=== PATIENT | male | born 1955 | race Caucasian/White ===

== ENCOUNTER → 2021-06-12 13:54 | Outpatient (BNVA) | payer BC, SELFPAY | PROVIDERS: PCP Internal Medicine; Referring Provider Internal Medicine; Visit Provider Surgery ==

== ENCOUNTER 2021-08-13 06:19 | Day surgery (SDC) | payer BC, SELFPAY ==
[2021-08-08 09:34] VITALS: BMI 28.6
--- NOTE | 2021-08-12 08:28 | HO.ANESPROP2 ---
Documented by User: Elzbieta Crooks NP 08/12/21 08:32 HPI - Anesthesia Eval Consult details Narrative: 66yo M for Colonoscopy, Poss Polypectomy [facility] Active Problems Active Problems: All Active Problems (Updated 06/12/21 @ 14:22 by Martín Gage MD) History of adenomatous polyp of colon (Acute) Hypothyroidism (Acute) Past Medical History Medical History History of adenomatous polyp of colon Hypothyroidism Surgical History Surgical History H/O colonoscopy History of left inguinal hernia repair History of thyroidectomy (~2011) Hx of skin graft Social History Social History Alcohol intake: current Alcohol intake frequency: does not drink Patient Tobacco Use Status: Former Tobacco user Tobacco use type: Cigarette Meds Allergies Allergy/AdvReac Type Severity Reaction Status Date / Time No Known Allergies Allergy Verified 06/12/21 14:14 [No Known Allergies*] Home Medications Medication Instructions Recorded Confirmed Last Taken Type levothyroxine 137 mcg tablet 137 mcg PO DAILY 06/12/21 08/13/21 08/13/21 05:15 History (Synthroid) Exam Exam Date and Time: August 12, 2021 0828 Height,Weight and Vital Signs: Height 6 ft 3 in Weight 103.929 kg Assessment and Plan Assessment Anesthesia Assessment: Chart Reviewed Documented by User: Farshad Early MD 08/13/21 14:55 HPI - Anesthesia Eval Consult details Narrative: 66yo M for Colonoscopy, Poss Polypectomy h/o thyroid carcinoma s/p surgery . DVT , 5 years ago was on anti coagulation . [facility] Past Medical History Medical History History of adenomatous polyp of colon Hypothyroidism Functional capacity: independent ambulation Family History Family history of problems with anesthesia: Yes (Comma / delayed emergence in daughter and ? MH . Patient does not know details ) Surgical History Surgical History H/O colonoscopy History of left inguinal hernia repair History of thyroidectomy (~2011) Hx of skin graft History of Problems with Anesthesia: No Social History Social History Alcohol intake: current Alcohol intake frequency: does not drink Patient Tobacco Use Status: Former Tobacco user Tobacco use type: Cigarette Meds Allergies Allergy/AdvReac Type Severity Reaction Status Date / Time No Known Allergies Allergy Verified 06/12/21 14:14 [No Known Allergies*] Home Medications Medication Instructions Recorded Confirmed Last Taken Type levothyroxine 137 mcg tablet 137 mcg PO DAILY 06/12/21 08/13/21 08/13/21 05:15 History (Synthroid) Exam Airway Mallampati Class: II TM Dist: >3cm Neck ROM: Full Loose/Missing/Broken Teeth: Yes Heart: rrr Lungs: bl breath sounds Assessment and Plan Assessment Anesthesia Assessment: Anesthesia Plan Discussed Final Anesthetic Review Family History of Problems with Anesthesia: Yes (Comma / delayed emergence in daughter and ? MH . Patient does not know details ) History of Problems with Anesthesia: No NPO: Yes ASA Class: III Final Preanesthetic Review: No Changes in Pt Med Stat, Meds/Allgs Chart Reviewed, Consent Obtained/Reviewed and Anes Risks/Benef Reviewed Patient Risk: Intermediate Procedure Risk: Intermediate Anesthetic Plan Anesthetic Plan: MAC: Disposition: Standard PACU
[2021-08-13 06:43] VITALS: BP 127/89; PULSE 77; RESP 16; TEMP 36.5; O2SAT 99
[2021-08-13] MEDS: Lactated Ringers 1,000 ML 100 ML IVCONT (06:47)
--- NOTE | 2021-08-13 07:25 | MHC.SHP ---
Pre-Procedural Eval Section A Date of Service: 08/13/21 Section B Chief Complaint: History of adenomatous polyp of colon Details of Present Illness: has hx of adenomatous polyps, last colonoscopy in 2017 Relevant Family History (Specify if Yes): No Relevant Social History: None Present Medications: see Short Stay Collaborative assessment Medical History: Significant History (thyroid ds) Allergies: Allergies Allergy/AdvReac Type Severity Reaction Status Date / Time No Known Allergies Allergy Verified 06/12/21 14:14 [No Known Allergies*] Review of Systems Sugical H&P ROS: Negative: Constitution, Cardiovascular, Respiratory, Neurological, Psychiatric, Hem-Onc, Allergic/Immunologic, Gastrointestinal, Genitourinary, Musculoskeletal, Integumentary, Endocrine and Eyes/Ears/Nose/Throat Exam Surgical H&P Exam: Normal: HEENT, Normal: Heart, Normal: Lungs, Normal: Extremities, Normal: Abdomen, Normal: Skin and Normal: Neurological Plan Diagnosis/Plan: Unchanged I have reviewed the history and physical and performed a pertinent physical examination on my patient. No changes have occurred unless specified.
--- NOTE | 2021-08-13 08:09 | W.PM.OPN ---
Operative Note Operative Note Date of Service: 08/13/21 Narrative: Preop diagnosis: History of tubular adenomas Postop diagnosis: 1. Diffuse diverticulosis throughout the colon, heavy in the sigmoid 2. Large external hemorrhoids Procedure: Colonoscopy Surgeon: Martín Gage MD Patient is a 66 year male who had multiple tubular adenomas in 2017. He was advised to have another colonoscopy within 1 year but he said he never had this done. He understood the technique of colonoscopy and was aware of the risks, benefits and alternatives He was brought to the operating room placed in left lateral decubitus position under monitored anesthesia care. A surgical time-out was done. I proceeded to do a digital rectal exam. The patient had large external hemorrhoids. There was no new anal mass. I inserted the Olympus colonoscope through the anal orifice advanced this gently with insufflation all the way to the cecum. The cecum was intubated. The cecum was identified by visualization of the ileocecal valve as well as the appendiceal orifice. The cecal mucosa was unremarkable. The scope was gradually withdrawn with careful examination of the entire colonic mucosa being done with scope withdrawal. The patient had good bowel prep so it was unlikely that any lesion may have been missed . There was note of scattered diverticulosis throughout the entire colon. However, this was very heavy in the area of the sigmoid. There were no lesions seen. The rectum and the anal canal were unremarkable. Anal shelf did not have any lesions. There was note of which external hemorrhoids. The scope was then withdrawn completely with desufflation. The patient tolerated procedure well. There were no complications noted. He was transferred to recovery room with stable vital signs . In view of history of multiple tubular adenomas, I would recommend another colonoscopy in 5 years.
[2021-08-13 08:16] VITALS: BP 106/62; PULSE 59; RESP 19; TEMP 36.6; O2SAT 97
[2021-08-13 08:31] VITALS: BP 116/79; PULSE 55; RESP 18; TEMP 36.6; O2SAT 98
== END 2021-08-13 08:56 | disposition home or self-care (01) ==
PROVIDERS: PCP Internal Medicine; Visit Provider Surgery
PROC: 0DJD8ZZ Inspection of Lower Intestinal Tract, Via Natural or Artificial Opening Endoscopic (ICD-10-PCS; CPT 45378; principal; 2021-08-13 07:30)
DX: Z12.11 Encounter for screening for malignant neoplasm of colon (principal); Z86.010 Personal history of colon polyps; K57.30 Diverticulosis of large intestine without perforation or abscess without bleeding; K64.4 Residual hemorrhoidal skin tags; E89.0 Postprocedural hypothyroidism; Z98.890 Other specified postprocedural states; Z87.891 Personal history of nicotine dependence
CPT/HCPCS: 45378

== ENCOUNTER → 2021-09-02 10:25 | Outpatient (BNVA) | payer BC, SELFPAY | PROVIDERS: PCP Internal Medicine; Referring Provider Internal Medicine; Visit Provider Surgery | DX: Z13.89 Encounter for screening for other disorder (principal) ==

== ENCOUNTER 2022-01-21 10:53 | Outpatient (REF) | payer BC, SELFPAY ==
[2022-01-21 14:23] LABS: Thyroid Stimulating Hormone 0.27 uIU/mL (0.32-4.0)
[2022-01-24 05:27] LABS: Thyroglobulin <0.1 ng/mL
== END 2022-01-21 10:54 | disposition home or self-care (01) ==
LOC: HO.10HDL 10:53
PROVIDERS: Visit Provider Internal Medicine Endocrinology, Diabetes & Metabolism
DX: C73 Malignant neoplasm of thyroid gland (principal)
CPT/HCPCS: 36415; 84432; 84439; 84443

== ENCOUNTER 2022-03-17 11:49 | Emergency (ER) | payer BC, SELFPAY ==
--- NOTE | 2022-03-17 11:52 | ECG_ITS ---
Test Reason : chest pain Blood Pressure : / mmHG Vent. Rate : 063 BPM Atrial Rate : 063 BPM P-R Int : 124 ms QRS Dur : 092 ms QT Int : 398 ms P-R-T Axes : 046 011 024 degrees QTc Int : 407 ms Normal sinus rhythm Low voltage QRS Borderline ECG When compared with ECG of 15-MAR-2003 15:37, No significant change was found Referred By: Generic ED Physician Electronically Signed By:RADHA HUMMEL MD
[2022-03-17 12:00] VITALS: BP 137/80; PULSE 70; RESP 18; TEMP 36.1; O2SAT 95; BMI 27.1
--- NOTE | 2022-03-17 12:00 | ED_ITS ---
HPI - Chest Pain General Chief Complaint: Chest Pain Stated Complaint: CHest & Arm Pain Sent from Drs Office Time Seen by Provider: 03/17/22 12:00 Source: patient Mode of arrival: ambulatory Limitations: no limitations History of Present Illness HPI narrative: patient with chest pressure since this morning. He went to his primary care and the sent him here. 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) Pain location: left chest Pain radiation: left arm Severity: mild Quality: aching Relieving factors: nothing Exacerbating factors: nothing Associated symptoms: other (dizziness) Risk Factors Coronary artery disease risk factors: smoking history Related Data Previous Rx's Medication Instructions Recorded levothyroxine 137 mcg tablet 137 mcg PO DAILY #30 tabs 11/12/21 (Synthroid) Allergies Allergy/AdvReac Type Severity Reaction Status Date / Time No Known Allergies Allergy Verified 03/17/22 10:43 [No Known Allergies*] Review of Systems Constitutional: Constitutional: Reports no additional constitutional complaints Eyes: Eyes: Reports no additional eye complaints ENT: Denies dizziness Cardiovascular: Cardiovascular: Reports no additional cardiovascular complaints Respiratory: Respiratory: Reports as per HPI Gastrointestinal: Gastrointestinal: Reports no additional gastrointestinal complaints Musculoskeletal: Musculoskeletal: Reports no additional musculoskeletal complaints Integumentary/Breasts: Skin/Breast: Denies rash Neurologic: Reports system reviewed and no additional complaints, except as documented, Denies dizziness and Denies Sensory deficit (Neuro) Psychiatric: Psychiatric: Denies anxiety PMFSH Past Medical History Medical History Diverticulosis History of adenomatous polyp of colon Hypothyroidism Thyroid cancer Surgical History H/O colonoscopy History of colonoscopy (~2021) History of left inguinal hernia repair History of thyroidectomy (~2011) Hx of skin graft Family History Family History Mother Heart problem Father Heart problem Social History Social History Alcohol intake: current Alcohol intake frequency: does not drink Patient Tobacco Use Status: Former Tobacco user Tobacco use type: Cigarette Physical Exam Vital Signs: Vital Signs: Last Vital Signs Temp 97.0 F 03/17/22 12:00 Pulse 70 03/17/22 12:00 Resp 18 03/17/22 12:00 BP 137/80 03/17/22 12:00 Pulse Ox 95 03/17/22 12:00 O2 Del Method 03/17/22 12:00 BMI result Body Mass Index 27.1 Const: General: healthy appearing Nutritional Appearance: average body habitus Orientation/consciousness: oriented to person and patient oriented x3 Limitations: no limitations HEENT: Head: Yes normal to inspection Ears: external ears normal General nose exam: Normal external nose present Mouth: Normal oral and palatal mucosa present and oropharynx normal Throat: Yes posterior oropharynx normal Eyes: General: appearance normal, both eyes and all related structures Neck: Other: supple Neck: Yes normal visual inspection Chest: Chest palpation & inspection: normal inspection of the chest Resp: Auscultation: clear to auscultation bilaterally Cardio: Jugular venous distension: no JVD Rate: regular rate Rhythm: regular rhythm Heart sounds: S1 normal heart sound present and S2 normal heart sound present GI: Inspection: Yes normal to inspection Palpation (GI): Soft to palpation, nontender and No hepatosplenomegaly present Auscultation: normal bowel sounds : General: Yes no CVA tenderness Back/Spine/Pelvis: Back: no CVA tenderness Skin: General skin exam: no rashes or lesions noted Neuro: General: oriented to person and patient oriented x3 Cranial nerves: Yes CN's II-XII intact bilaterally Motor exam (neuro): 5/5 motor strength present throughout Sensory Exam: No Sensory deficit (Neuro) Extrem: General: Yes normal to inspection Psych: Appearance: grossly normal Course Reevaluation(s) Reevaluation #1: patient with normal EKG and normal vitals, first troponin is negative will draw second troponin Time: 14:35 Reevaluation #2: serial enzymes were negative will dc home with close follow up by pmd Time: 15:43 Medications Administered Discontinued Medications Generic Name Dose Route Start Last Admin Trade Name Hal PRN Reason Stop Dose Admin Aspirin 325 mg 03/17/22 12:04 03/17/22 12:09 Aspirin Enteric Coated 325 Mg Tablet.Dr CHAVEZ 03/17/22 12:05 325 mg ONCE ONE Administration MDM - Chest Pain Lab Data Result diagrams: 03/17/22 12:02 03/17/22 12:02 Labs: Lab Results 03/17/22 03/17/22 03/17/22 Range/Units 12:02 12:02 12:02 WBC 5.1 (4.8-10.8) X10*3/uL RBC 4.29 L (4.60-5.80) X10*6/uL Hgb 13.1 L (14.0-18.0) g/dl Hct 39.5 L (42.0-52.0) % MCV 92.1 (80.0-98.0) fL MCH 30.5 (27.0-33.0) pg MCHC 33.2 (31.0-36.0) g/dl RDW 13.1 (11.0-16.0) % Plt Count 225 (160-400) X10*3/uL MPV 11.0 (9.4-12.4) fL Immature Gran % (Auto) 0.6 H (0.0-0.4) % Neut % (Auto) 56.3 (45-73) % Lymph % (Auto) 28.1 (20-40) % Metcalfe % (Auto) 12.2 H (2-11) % Eos % (Auto) 1.8 (0-4) % Baso % (Auto) 1.0 (0-2) % Lymph # (Auto) 1.4 (1.2-4.9) X10*3/uL Metcalfe # (Auto) 0.6 (0.1-1.2) X10*3/uL Eos # (Auto) 0.1 (0.0-0.4) X10*3/uL Baso # (Auto) 0.1 (0.0-0.2) X10*3/uL Abs Immat Gran (auto) 0.03 (0.00-0.03) X10*3/uL Absolute Neuts (auto) 2.9 (2.0-8.3) x10*3/uL Absolute Nucleated RBC 0.000 (0.0-0.012) X10*3/uL Nucleated RBC % (auto) 0.0 (0.0-0.2) /100WBC Sodium 139 (135-145) mmol/L Potassium 4.7 (3.3-5.1) mmol/L Chloride 108 (96-108) mmol/L Carbon Dioxide 21 L (22-29) mmol/L Anion Gap 15 (12-20) BUN 14 (9-16) mg/dL Creatinine 1.05 (0.5-1.4) mg/dL Estim Creat Clear Calc 84.9 Estimated GFR > 60 Random Glucose 97 (60-115) mg/dL Calcium 8.6 (8.4-10.2) mg/dL Total Bilirubin 0.5 (0.0-1.0) mg/dL AST 28 (5-37) U/L ALT 33 (0-40) U/L Alkaline Phosphatase 47 (39-117) U/L Troponin I High Sens < 3.5 (<3.5-35.0) ng/L Total Protein 7.0 (6.5-8.0) g/dL Albumin 4.2 (3.5-5.0) g/dL 03/17/22 Range/Units 15:07 WBC (4.8-10.8) X10*3/uL RBC (4.60-5.80) X10*6/uL Hgb (14.0-18.0) g/dl Hct (42.0-52.0) % MCV (80.0-98.0) fL MCH (27.0-33.0) pg MCHC (31.0-36.0) g/dl RDW (11.0-16.0) % Plt Count (160-400) X10*3/uL MPV (9.4-12.4) fL Immature Gran % (Auto) (0.0-0.4) % Neut % (Auto) (45-73) % Lymph % (Auto) (20-40) % Metcalfe % (Auto) (2-11) % Eos % (Auto) (0-4) % Baso % (Auto) (0-2) % Lymph # (Auto) (1.2-4.9) X10*3/uL Metcalfe # (Auto) (0.1-1.2) X10*3/uL Eos # (Auto) (0.0-0.4) X10*3/uL Baso # (Auto) (0.0-0.2) X10*3/uL Abs Immat Gran (auto) (0.00-0.03) X10*3/uL Absolute Neuts (auto) (2.0-8.3) x10*3/uL Absolute Nucleated RBC (0.0-0.012) X10*3/uL Nucleated RBC % (auto) (0.0-0.2) /100WBC Sodium (135-145) mmol/L Potassium (3.3-5.1) mmol/L Chloride (96-108) mmol/L Carbon Dioxide (22-29) mmol/L Anion Gap (12-20) BUN (9-16) mg/dL Creatinine (0.5-1.4) mg/dL Estim Creat Clear Calc Estimated GFR Random Glucose (60-115) mg/dL Calcium (8.4-10.2) mg/dL Total Bilirubin (0.0-1.0) mg/dL AST (5-37) U/L ALT (0-40) U/L Alkaline Phosphatase (39-117) U/L Troponin I High Sens < 3.5 (<3.5-35.0) ng/L Total Protein (6.5-8.0) g/dL Albumin (3.5-5.0) g/dL Discharge Plan Discharge Clinical Impression: Chest pain Patient Disposition: Home, Self-Care Instructions: Chest Pain (ED) Additional Instructions: return immediately for worsening chest pain otherwise follow up with your doctor for outpatient stress test Prescriptions: No Action levothyroxine [Synthroid] 137 mcg tablet 137 mcg PO DAILY Qty: 30 1RF Referrals: Erika Razo MD [Primary Care Provider] - 3 days
[2022-03-17] MEDS: Aspirin Enteric Coated 325 MG TABLET.DR PO (12:09)
[2022-03-17 12:20] LABS: MANUAL DIFF FLAG NO
[2022-03-17 12:21] LABS: Basophils Absolute Auto 0.1 X10*3/uL (0.0-0.2); Eosinophils Absolute Auto 0.1 X10*3/uL (0.0-0.4); Eosinophils Percent Auto 1.8 % (0-4); Hematocrit 39.5 % (42.0-52.0); Hemoglobin 13.1 g/dl (14.0-18.0); Imm Gran Abs Auto 0.03 X10*3/uL (0.00-0.03); Imm Gran Pct Auto 0.6 % (0.0-0.4); Lymphocytes Absolute Auto 1.4 X10*3/uL (1.2-4.9); Lymphocytes Percent Auto 28.1 % (20-40); Mean Corpuscular HGB Conc 33.2 g/dl (31.0-36.0); Mean Corpuscular Hemoglobin 30.5 pg (27.0-33.0); Mean Corpuscular Volume 92.1 fL (80.0-98.0); Monocytes Absolute Auto 0.6 X10*3/uL (0.1-1.2); Monocytes Percent Auto 12.2 % (2-11); Neutrophils Absolute Auto 2.9 x10*3/uL (2.0-8.3); Neutrophils Percent Auto 56.3 % (45-73); Platelet Count 225 X10*3/uL (160-400); Red Blood Count 4.29 X10*6/uL (4.60-5.80); Red Cell Distribution Width 13.1 % (11.0-16.0); White Blood Count 5.1 X10*3/uL (4.8-10.8)
[2022-03-17 12:36] LABS: Alanine Aminotransferase 33 U/L (0-40); Albumin Level 4.2 g/dL (3.5-5.0); Alkaline Phosphatase 47 U/L (39-117); Anion Gap 15 (12-20); Aspartate Amino Transferase 28 U/L (5-37); Bilirubin Total 0.5 mg/dL (0.0-1.0); Blood Urea Nitrogen 14 mg/dL (9-16); Calcium 8.6 mg/dL (8.4-10.2); Carbon Dioxide 21 mmol/L (22-29); Chloride 108 mmol/L (96-108); Creatinine Clr Calc Pharmacy 84.9; Estimated Glomerular Filt Rate > 60; Glucose Random 97 mg/dL (60-115); Potassium 4.7 mmol/L (3.3-5.1); Sodium 139 mmol/L (135-145)
[2022-03-17 12:42] LABS: Troponin-I High Sensitivity < 3.5 ng/L (<3.5-35.0)
[2022-03-17 15:34] LABS: Troponin-I High Sensitivity < 3.5 ng/L (<3.5-35.0)
--- OUTSIDE RECORDS SUMMARY | 2022-03-17 15:54 | XMS_ITS | Continuity of Care Document ---
:1955 Author Organization [facility] [place] Address [address] [place] [address]- Care Team Providers Name Role Phone Danni GOFF, Erika Crawford Primary Care Physician [place] [facility] [place]20 [facility] Endocrinology and Diabetes [address] [place] [id number] Allergies, Adverse Reactions, Alerts Substance Reaction Severity Status NKA Active Immunizations Given and Recorded Vaccine Date Status Refusal Reason SARS-CoV-2 (COVID-19) mRNA BNT-162b2 vac 08/09/20 Given SARS-CoV-2 (COVID-19) mRNA BNT-162b2 vac 07/19/20 Given Medications aspirin 81 mg oral tablet 1 tablet = 81 mg, By Mouth, Daily, 0 Refills, Maintenance, 06/09/18 15:21:49 EST Start Date: 06/09/18 Status: OrderedSynthroid 137 mcg (0.137 mg) oral tablet 1 tablet = 137 mcg, By Mouth, Daily, for 30 days, NO SUBSTITUTIONS; BRAND NAME MEDICALLY NECESSARY;,# 30 tablet, 2 Refills, Hard Stop 01/08/21 11:01:00 EDT, 10/10/20 11:01:00 EDT, Tablet, [id number], 190, cm, 11/17/18 16:38:00 EDT, Height Start Date: 10/10/20 Stop Date: 01/08/21 Status: OrderedSynthroid 137 mcg (0.137 mg) oral tablet 1 tablet = 137 mcg, By Mouth, Daily, NO SUBSTITUTIONS; BRAND NAME MEDICALLY NECESSARY;, # 90 tablet,3 Refills, Maintenance, 01/08/21 11:01:00 EDT, Tablet, [id number], 190, cm, 10/31/20 8:41:00EDT, Height Start Date: 01/08/21 Stop Date: 01/03/22 Status: Ordered Social History Social History Type Response Smoking Status Former smoker; Other: quit J anuary 2015; entered on: 09/27/15 Sex
--- OUTSIDE RECORDS SUMMARY | 2022-03-17 15:54 | XMS_ITS | Continuity of Care Document ---
:1955 Author Organization [facility] Address [address] [place] [address]- Care Team Providers Name Role Phone Danni GOFF, Erika Crawford Primary Care Physician Encounter [facility] [place] Date(s): 10/17/20 - 11/16/20 [facility] Endocrinology and Diabetes [address] [place] [id number] Allergies, Adverse Reactions, Alerts Substance [...]
--- OUTSIDE RECORDS SUMMARY | 2022-03-17 15:54 | XMS_ITS | Continuity of Care Document ---
:1955 Author Organization [facility] Address [address] [place] [address]- Care Team Providers Name Role Phone Danni GOFF, Erika Crawford Primary Care Physician [phone] Encounter [facility] [place]s): 09/07/19 - 10/07/19 [facility] Endocrinology and Diabetes [address] [place] [id number] [facility] Attending Physician: Admtr, Law8 Admitting Physician: Admtr, Ar8 Referring Physician: Admtr, Ar8 Allergies, Adverse Reactions, Alerts Substance Reaction Severity Status NKA Active Medications aspirin 81 mg oral tablet 1 tablet = 81 mg, By Mouth, Daily, 0 Refills, Maintenance, 06/09/18 15:21:49 EST Start Date: 06/09/18 Status: OrderedSynthroid 137 mcg (0.137 mg) oral tablet 1 tablet = 137 mcg, By Mouth, Daily, for 30 days, NO SUBSTITUTIONS; BRAND NAME MEDICALLY NECESSARY;,# 30 tablet, 2 Refills, Hard Stop 12/05/19 14:06:00 EDT, 09/06/19 14:06:00 EDT, Tablet, [id number], 190, cm, 11/17/18 16:38:00 EDT, Height Start Date: 09/06/19 Stop Date: 12/05/19 Status: OrderedSynthroid 137 mcg (0.137 mg) oral tablet 1 tablet = 137 mcg, By Mouth, Daily, NO SUBSTITUTIONS; BRAND NAME MEDICALLY NECESSARY;, # 30 tablet,9 Refills, Maintenance, 12/05/19 14:06:00 EDT, Tablet, [id number], 190, cm, 11/17/18 16:38:00 EDT, Height Start Date: 12/05/19 Stop Date: 09/30/20 Status: Ordered Social History Social History Type Response Smoking Status Former smoker; Other: quit J anuary 2015; entered on: 09/27/15 Sex
--- OUTSIDE RECORDS SUMMARY | 2022-03-17 15:54 | XMS_ITS | Continuity of Care Document ---
:1955 Author Organization [facility] Address [address] [place] [address]- Care Team Providers Name Role Phone Danni GOFF, Erika Crawford Primary Care Physician Encounter [facility] [place](s): 10/10/20 - 11/09/20 [facility] Endocrinology and Diabetes [address] [place] [id number] Allergies, Adverse Reactions, Alerts Substance Reaction Severity [...]
--- OUTSIDE RECORDS SUMMARY | 2022-03-17 15:54 | XMS_ITS | Continuity of Care Document ---
:1955 Author Organization [facility] Address [address] [place] [address]- Care Team Providers Name Role Phone Danni GOFF, Erika Crawford Primary Care Physician Encounter [facility] [place] Date(s): 10/31/20 - 11/30/20 [facility] Endocrinology and Diabetes [address] [place] [id number] Attending Physician: AdmAsher samson Admitting Physician: Admtr, Law8 Referring Physician: Admtr, Ar8 Allergies, Adverse Reactions, [...] 01/08/21 11:01:00 EDT, 10/10/20 11:01:00 EDT, Tablet, [id number], 190, cm, 11/17/18 16:38:00 EDT, Height Start [...]
--- OUTSIDE RECORDS SUMMARY | 2022-03-17 15:54 | XMS_ITS | Continuity of Care Document ---
:1955 Author Organization [facility] Address [address] [place] [address]- Care Team Providers Name Role Phone Danni GOFF, Erika Crawford Primary Care Physician [place] [facility] [place] 09[place]07/19 - 09/14/19 [facility] Endocrinology and Diabetes [address] [place] [address] [facility] Attending Physician: Giuliana GOFF, Brody Referring Physician: Erika Razo MD Allergies, Adverse Reactions, Alerts Substance Reaction Severity [...] EDT, Height Start Date: 12/05/19 Stop Date: 5/23/21 Status: Ordered Social History Social History Type Response Smoking Status Former smoker; Other: quit J anuary 2015; entered on: 09/27/15 Sex
--- OUTSIDE RECORDS SUMMARY | 2022-03-17 15:54 | XMS_ITS | Continuity of Care Document ---
:1955 Author Organization [facility] Address [address] [place] [address]- Care Team Providers Name Role Phone Danni GOFF, Erika Crawford Primary Care Physician [place] [facility] [place]s): 10/31/20 - 11/30/20 [facility] Endocrinology and Diabetes [address] [place] [id number] Allergies, Adverse Reactions, Alerts Substance Reaction [...]
== END 2022-03-17 16:06 | disposition home or self-care (01) ==
LOC: HO.ED 15:53
PROVIDERS: Emergency Provider Emergency Medicine; PCP Internal Medicine
DX: R07.9 Chest pain, unspecified (principal); Z87.891 Personal history of nicotine dependence
CPT/HCPCS: 36415; 80053; 84484; 85025; 93005; 99283; 99284

== ENCOUNTER 2023-01-21 11:04 | Outpatient (AMB) | payer BC, SELFPAY ==
[2023-01-21 11:06] VITALS: BP 98/66; PULSE 67; BMI 27.3
--- NOTE | 2023-01-21 11:06 | A.OFFVIS_ITS ---
Intake Vital Signs 01/21/23 11:06 Height 6 ft 3 in Weight 218 lb 7.649 oz BMI 27.3 BP 98/66 Blood Pressure Location Lt brachial Position Sitting Pulse 67 Pulse Source Pulse Oximeter Intake Visit Reasons: f/u thyroid cancer/ LVM Intake Note: Patient present for Thyroid Cancer follow up visit. 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 In 2006, he underwent a total thyroidectomy with iodine-131 ablation 2006. He has subsequently had negative basal thyroglobulin is and negative neck ultrasounds. He is currently on levothyroxine 137 mcg q.d. he has no complaints of hypothyroidism or hyperthyroid [facility] Medical History Diverticulosis History of adenomatous polyp of colon Hypothyroidism Thyroid cancer Surgical History History of colonoscopy (~2021) H/O colonoscopy Hx of skin graft History of left inguinal hernia repair History of thyroidectomy (~2011) Family History Mother Heart problem Father Heart problem Social History Alcohol intake: current Alcohol intake frequency: does not drink Patient Tobacco Use Status: Former Tobacco user Tobacco use type: Cigarette Physical Exam Vital Signs: Last Vital Signs Pulse 67 01/21/23 11:06 BP 98/66 01/21/23 11:06 BMI result Body Mass Index 27.3 Const Other: There is a healed scar status post thyroidectomy. There is no cervical adenopathy palpated. 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 In 2006, he underwent a total thyroidectomy with iodine-131 ablation 2006. He has subsequently had negative basal thyroglobulin is and negative neck ultrasounds. He is currently on levothyroxine 137 mcg q.d. He appears to be clinically euthyroid. The plan is to recheck TSH, free T4 as well as thyroglobulin. . Will adjust levothyroxine accordingly. Once patient is clinically biochemically euthyroid can follow-up with primary care provider Orders: Orders Free T4 (Free Thyroxine) Today C73 - Malignant neoplasm of thyroid gland Thyroid Stimulating Hormone Today C73 - Malignant neoplasm of thyroid gland Thyroglobulin Tumor Marker Today C73 - Malignant neoplasm of thyroid gland Thyroglobulin Antibodies Today C73 - Malignant neoplasm of thyroid gland Coding Level of Care Code Est Pt Level 3 (69054) Diagnoses Thyroid cancer C73
== END 2023-01-21 11:42 | disposition home or self-care (01) ==
PROVIDERS: PCP Internal Medicine; Visit Provider Internal Medicine Endocrinology, Diabetes & Metabolism
DX: C73 Malignant neoplasm of thyroid gland (principal)
CPT/HCPCS: 99213

== ENCOUNTER → 2023-01-21 11:04 | Outpatient (BNVA) | payer BC, SELFPAY | PROVIDERS: Visit Provider Internal Medicine Endocrinology, Diabetes & Metabolism ==

== ENCOUNTER 2023-01-21 11:45 | Outpatient (REF) | payer BC, SELFPAY ==
[2023-01-23 02:53] LABS: Thyroglobulin Antibodies <1 IU/mL (< or = 1)
[2023-01-27 04:23] LABS: Thyroglobulin Antibody <1 IU/mL (<=1); Thyroglobulin Level <0.1 ng/mL
== END 2023-01-21 11:46 | disposition home or self-care (01) ==
LOC: HO.10HDL 11:45
PROVIDERS: Visit Provider Internal Medicine Endocrinology, Diabetes & Metabolism
DX: C73 Malignant neoplasm of thyroid gland (principal)
CPT/HCPCS: 36415; 84432; 84439; 84443; 86800

== ENCOUNTER 2023-07-07 11:41 | Outpatient (AMB) | payer BC, SELFPAY ==
[2023-07-07 12:10] VITALS: BP 118/64; PULSE 64; O2SAT 96; BMI 27.9
--- NOTE | 2023-07-07 12:10 | A.OFFPC_ITS ---
Vital Signs 07/07/23 12:10 Height 6 ft 3 in Weight 223 lb BMI 27.9 BP 118/64 Blood Pressure Location Lt brachial Position Sitting Pulse 64 Pulse Source Pulse Oximeter Pulse Oximetry (%) 96 Oxygen Delivery Method Room Air Intake Visit Reasons: Re-establish Care/Request Referral For Dr. Virk Intake Note: Pt is here today to re-est care Allergies No Known Allergies [No Known Allergies*] Allergy (Verified 09/20/23 17:47) Medication List - Last Reconciled 07/07/23 by Erika Razo MD aspirin (Adult Low Dose Aspirin) 81 mg PO DAILY levothyroxine 137 mcg PO DAILY Tobacco use date assessed: 07/07/23 Fall risk assessment: No Falls in past year Last assessed Fall Risk: 07/07/23 Dental Screening Dental Screen Date: 07/07/23 Did you have a dental visit in the last 12 months?: No Was dental information given to patient?: Patient has dentist HPI Re-establish Care/Request Referral For Dr. Virk HPI Details 67-year-old male with history of thyroid cancer, s/p total thyroidectomy with iodine-131 ablation in 2006, with subsequent hypothyroidism, history of adenomatous polyp of colon, due for repeat colonoscopy in 2026, here to reestablish care. He currently takes levothyroxine 137 mcg daily. Has been feeling well with no complaints at present time. Needs a referral back to see his endocrine specialist, Dr. Virk. [facility] Medical History (Updated 09/20/23 @ 17:53 by Erika Razo MD) History of papillary adenocarcinoma of thyroid Hyperlipidemia Diverticulosis History of adenomatous polyp of colon Hypothyroidism Surgical History History of colonoscopy (~2021) H/O colonoscopy Hx of skin graft History of left inguinal hernia repair History of thyroidectomy (~2011) Family History Mother Heart problem Father Heart problem Social History Housing: House Alcohol intake: current Alcohol intake frequency: does not drink Patient Tobacco Use Status: Former Tobacco user Tobacco use type: Cigarette Cognitive needs: No Hearing needs: No Vision needs: No Questionnaire PHQ-9 Over the last 2 weeks, how often have you been bothered by any of the following problems? 1. Little interest or pleasure in doing things: not at all 2. Feeling down, depressed, or hopeless: not at all 3. Trouble falling or staying asleep, or sleeping too much: not at all 4. Feeling tired or having little energy: several days 5. Poor appetite or overeating: not at all 6. Feeling bad about yourself - or that you are a failure or have let yourself or your family down: not at all 7. Trouble concentrating on things, such as reading the newspaper or watching television: not at all 8. Moving or speaking so slowly that other people could have noticed. Or the opposite - being so fidgety or restless that you have been moving around a lot more than usual: not at all 9. Thoughts that you would be better off or of hurting yourself in some way: not at all Total score: 1 Depression Screening Interpretation: Negative Depression Screening Done: Yes 85476 - PHQ-9 Billing: Yes Source: Developed by Drs. Junior Harrell, Nathalia Arthur, Harley Munoz and colleagues, with an educational carter from [employer]. Thrive Questionnaire Date Thrive assessed: 07/07/23 I am a: Patient What is your living situation today?: I have a steady place to live Within the past 12 months, did the food you bought not last and you didn't have the money to get more?: Never true Within the past 12 months, did you worry whether your food would run out before you got money to buy more?: Never true Do you have trouble paying for medicines?: No Do you have trouble getting transportation to medical appointments?: No Do you have trouble paying your heating and electricity bill?: No Do you have trouble taking care of your child, family member or friend?: No Do you have trouble with day-to-day activities such as bathing, preparing meals, shopping, managing finances, etc.?: No Are you currently unemployed and looking for a job?: No Are you interested in more education?: No THRIVE Score: 0 AUDIT C Alcohol Use Questionnaire (AUDIT-C) 1. How often do you have a drink containing alcohol?: 4 or more times a week 2. How many drinks containing alcohol do you have on a typical day when you are drinking?: 1 or 2 3. How often do you have six or more drinks on one occasion?: Never Total Score: 4 KATERINA-7 AMB Questionnaire KATERINA-7 Date KATERINA - 7 assessed: 07/07/23 Feeling nervous, anxious, or on edge: 0 = Not at all Not being able to stop or control worryin = Not at all Worrying too much about different things: 0 = Not at all Trouble relaxin = Not at all Being so restless that it is hard to sit still: 0 = Not at all Becoming easily annoyed or irritable: 0 = Not at all Feeling afraid as if something awful might happen: 0 = Not at all Total KATERINA-7 score (0-4 normal; 5-9 mild; 10-14 moderate; 15-21 severe): 0 Source: Developed by Drs. Junior Harrell, Nathalia Arthur, Harley Munoz and colleagues, with an educational carter from [employer]. KATERINA-7 Assessment Billing KATERINA-7 Assessment Tool: KATERINA-7 Assessment 36385 Review of Systems Const Denies no additional complaints Eyes Denies change in vision ENT Reports no additional complaints Card Reports no additional complaints, Denies chest pain and Denies dyspnea Resp Denies cough and Denies dyspnea GI Denies abdominal pain Reports no additional complaints Musc Reports as per HPI Neuro Reports no additional complaints Psych Reports as per HPI Endo Reports no additional complaints Binh/Lymph Reports no additional complaints Aller/Immun Reports no additional complaints Physical exam (Primary Care) Vital Signs: Last Vital Signs Pulse 64 07/07/23 12:10 BP 118/64 07/07/23 12:10 Pulse Ox 96 07/07/23 12:10 Oxygen Delivery Method Room Air 07/07/23 12:10 BMI result Body Mass Index 27.9 Tobacco/Smoking Status: Tobacco use Status Tobacco use date assessed 07/07/23 07/07/23 12:11 Patient Tobacco Use Status Former Tobacco user 07/07/23 12:11 Tobacco use type Cigarette 07/07/23 12:11 PHQ-9: PHQ-9 Score PHQ-9: Total score 1 07/07/23 12:35 Depression Screening Interpretation: Negative Thrive Assessment: Date of Thrive Assessment Date Thrive assessed 07/07/23 07/07/23 12:28 Const General: comfortable, no acute distress and alert Orientation/consciousness: patient oriented x3 HENMT Ears: external ears normal General nose exam: Normal external nose present and No nasal discharge present Mouth: Normal oral and palatal mucosa present, oropharynx normal and moist mucous membranes Eyes General: appearance normal, both eyes and all related structures Conjunctivae: conjunctivae normal Sclerae: sclerae normal Pupils: Equal, round and reactive pupils present EOM: EOMs intact bilaterally Neck Neck: Yes full ROM, Yes no lymphadenopathy, Yes supple and Yes other (Healed surgical scar on anterior neck status post thyroidectomy) Resp Effort & Inspection: normal respiratory effort and able to speak in complete sentences Auscultation: clear to auscultation bilaterally Cardio Rate: regular rate Rhythm: regular rhythm Heart sounds: S1 normal heart sound present and S2 normal heart sound present GI Palpation (GI): Soft to palpation, nontender and no masses Auscultation: normal bowel sounds Back/Spine/Pelvis Back: No back tenderness Skin General skin exam: no rashes or lesions noted Neuro General: patient oriented x3, gait normal, tone normal, moves all extremities, Normal light touch and pain sensation and no focal motor deficits Cranial nerves: Yes CN's II-XII intact bilaterally and Yes Equal, round and reactive pupils present Cognition (Neuro): normal cognition Extrem General: Yes full ROM, Yes no joint enlargement, Yes no clubbing, cyanosis or edema and Yes no calf tenderness Psych Appearance: grossly normal and well kempt Mental Status: mental status grossly normal Speech and movement: Normal speech and movement present Affect: normal affect Attitude: cooperative Thought process: Normal thought process present Assessment and Plan Assessment & Plan (1) Hyperlipidemia: Code(s): E78.5 - Hyperlipidemia, unspecified Qualifiers: Hyperlipidemia type: pure hypercholesterolemia Qualified Code(s): E78.00 - Pure hypercholesterolemia, unspecified Plan: Fasting labs ordered to check lipids, liver enzymes, basic metabolic panel (2) History of papillary adenocarcinoma of thyroid: Code(s): Z85.850 - Personal history of malignant neoplasm of thyroid Plan: Endocrine consult obtained with Dr. Virk for follow-up (3) Hypothyroidism: Code(s): E03.9 - Hypothyroidism, unspecified Qualifiers: Hypothyroidism type: acquired Qualified Code(s): E03.9 - Hypothyroidism, unspecified Plan: Currently on levothyroxine referred to endocrine for follow-up (4) History of adenomatous polyp of colon: Code(s): Z86.010 - Personal history of colonic polyps Plan: Due again for colonoscopy in 2025 Orders: Orders Alanine Aminotransferase 07/09/23 E78.5 - Hyperlipidemia, unspecified, Z12.5 - Encounter for screening for malignant neoplasm of prostate, Z13.1 - Encounter for screening for diabetes mellitus Aspartate Amino Transferase 07/09/23 E78.5 - Hyperlipidemia, unspecified, Z12.5 - Encounter for screening for malignant neoplasm of prostate, Z13.1 - Encounter for screening for diabetes mellitus PSA,Total (Free>4and<10) 07/09/23 E78.5 - Hyperlipidemia, unspecified, Z12.5 - Encounter for screening for malignant neoplasm of prostate, Z13.1 - Encounter for screening for diabetes mellitus Lipid Panel 07/09/23 E78.5 - Hyperlipidemia, unspecified, Z12.5 - Encounter for screening for malignant neoplasm of prostate, Z13.1 - Encounter for screening for diabetes mellitus Vitamin D 25-OH Total 07/09/23 E78.5 - Hyperlipidemia, unspecified, Z12.5 - Encounter for screening for malignant neoplasm of prostate, Z13.1 - Encounter for screening for diabetes mellitus Basic Metabolic Panel Fasting 07/09/23 E78.5 - Hyperlipidemia, unspecified, Z12.5 - Encounter for screening for malignant neoplasm of prostate, Z13.1 - Encounter for screening for diabetes mellitus Coding Level of Care Code Est Pt Level 4 (15231) Diagnoses Pure hypercholesterolemia E78.00 Hyperlipidemia type: pure hypercholesterolemia History of papillary adenocarcinoma of thyroid Z85.850 Acquired hypothyroidism E03.9 Hypothyroidism type: acquired History of adenomatous polyp of colon Z86.010 Additional Codes KATERINA-7 Assessment Billing - KATERINA-7 Assessment Tool: KATERINA-7 Assessment 60095 ([id number])
== END 2023-07-07 16:06 | disposition home or self-care (01) ==
PROVIDERS: PCP Internal Medicine; Visit Provider Internal Medicine
DX: E78.00 Pure hypercholesterolemia, unspecified (principal); Z85.850 Personal history of malignant neoplasm of thyroid; E03.9 Hypothyroidism, unspecified; Z86.010 Personal history of colon polyps
CPT/HCPCS: 99214

== ENCOUNTER 2023-07-09 07:11 | Outpatient (REF) | payer BC, SELFPAY ==
[2023-07-09 08:32] LABS: Alanine Aminotransferase 32 U/L (0-40); Anion Gap 11 (12-20); Aspartate Amino Transferase 28 U/L (5-37); Blood Urea Nitrogen 17 mg/dL (9-16); Calcium 9.1 mg/dL (8.4-10.2); Carbon Dioxide 26 mmol/L (22-29); Chloride 109 mmol/L (96-108); Cholesterol 254 mg/dL (<200); Estimated Glomerular Filt Rate 57; Glucose Fasting 98 mg/dL (60-99); HDL Cholesterol 54 mg/dL (>40); LDL Cholesterol Calculated 177 mg/dL (<100); Potassium 4.5 mmol/L (3.3-5.1); Sodium 141 mmol/L (135-145); Triglycerides 115 mg/dL (<150)
[2023-07-09 08:46] LABS: Vitamin D 25-OH Total 48.6 ng/mL (>30)
[2023-07-09 08:47] LABS: PSA,Total (Free>4and<10) 0.76 ng/mL (0.00-4.00)
[2023-07-09 08:48] LABS: Free T4 (Free Thyroxine) 1.27 ng/dL (0.71-1.85); Thyroid Stimulating Hormone 0.59 uIU/mL (0.32-4.0)
[2023-07-14 04:49] LABS: Thyroglobulin Antibody <1 IU/mL (<=1); Thyroglobulin Level <0.1 ng/mL
== END 2023-07-09 07:12 | disposition home or self-care (01) ==
LOC: HO.LAB 07:11
PROVIDERS: Absent Provider Internal Medicine Endocrinology, Diabetes & Metabolism; PCP Internal Medicine; Visit Provider Internal Medicine
DX: Z13.1 Encounter for screening for diabetes mellitus (principal); Z12.5 Encounter for screening for malignant neoplasm of prostate; C73 Malignant neoplasm of thyroid gland; E03.9 Hypothyroidism, unspecified; E78.5 Hyperlipidemia, unspecified
CPT/HCPCS: 36415; 80048; 80061; 82306; 84153; 84432; 84439; 84443; 84450; 84460; 86800

== ENCOUNTER 2023-07-13 14:02 | Outpatient (AMB) | payer BC, SELFPAY ==
[2023-07-13 14:03] VITALS: BP 124/66; PULSE 89; BMI 28.1
--- NOTE | 2023-07-13 14:03 | A.OFFVIS_ITS ---
Intake Vital Signs 07/13/23 14:03 Height 6 ft 3 in Weight 225 lb 1.471 oz BMI 28.1 BP 124/66 Blood Pressure Location Lt brachial Position Sitting Pulse 89 Pulse Source Pulse Oximeter Intake Visit Reasons: Thyroid Cancer-confirmed Intake Note: Patient presents today Thyroid Cancer follow up. Barrel Filler Required: No Accompanied by: Self / Same As Patient Allergies No Known Allergies [No Known Allergies*] Allergy (Verified 07/13/23 14:08) Medication List - Last Reconciled 07/13/23 by Junior Virk MD aspirin (Adult Low Dose Aspirin) 81 mg PO DAILY levothyroxine 137 mcg PO DAILY HPI HPI Comments History of Present Illness Details This 67 -year-old white male previously followed by myself for management of papillary thyroid cancer which was 1.5 cm with extrathyroidal extension. In 2006, he underwent a total thyroidectomy with iodine-131 ablation 2006. He has subsequently had negative basal thyroglobulin is and negative neck ultrasounds. He is currently on levothyroxine 137 mcg q.d. he has no complaints of hypothyroidism or hyperthyroid [facility] Medical History (Updated 07/07/23 @ 12:52 by Erika Razo MD) History of papillary adenocarcinoma of thyroid Hyperlipidemia Diverticulosis History of adenomatous polyp of colon Hypothyroidism Surgical History (Updated 07/07/23 @ 12:52 by Erika Razo MD) History of colonoscopy (~2021) H/O colonoscopy Hx of skin graft History of left inguinal hernia repair History of thyroidectomy (~2011) Family History (Updated 07/07/23 @ 12:23 by Deandra Cohen CMA) Mother Heart problem Father Heart problem Social History Housing: House Alcohol intake: current Alcohol intake frequency: does not drink Patient Tobacco Use Status: Former Tobacco user Tobacco use type: Cigarette Cognitive needs: No Hearing needs: No Vision needs: No Physical Exam Vital Signs: Last Vital Signs Pulse 89 07/13/23 14:03 BP 124/66 07/13/23 14:03 BMI result Body Mass Index 28.1 Const Other: There is a healed scar status post thyroidectomy. There is no cervical adenopathy palpated. 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 In 2006, he underwent a total thyroidectomy with iodine-131 ablation 2006. He has subsequently had negative basal thyroglobulin is and negative neck ultrasounds. He is currently on levothyroxine 137 mcg q.d. He appears to be clinically and biochemically euthyroid. At this point, patient returned back to his primary care provider and returned back to endocrinology as needed Coding Level of Care Code Est Pt Level 3 (75529) Diagnoses Thyroid cancer C73
== END 2023-07-13 14:41 | disposition home or self-care (01) ==
PROVIDERS: PCP Internal Medicine; Visit Provider Internal Medicine Endocrinology, Diabetes & Metabolism
DX: C73 Malignant neoplasm of thyroid gland (principal)
CPT/HCPCS: 99213

== ENCOUNTER → 2023-07-13 14:02 | Outpatient (BNVA) | payer BC, SELFPAY | PROVIDERS: PCP Internal Medicine; Visit Provider Internal Medicine Endocrinology, Diabetes & Metabolism ==

== ENCOUNTER 2024-02-23 14:01 | Outpatient (AMB) | payer BC, SELFPAY ==
[2024-02-23 14:14] VITALS: BP 114/72; PULSE 68; BMI 28.0
--- NOTE | 2024-02-23 14:14 | MHC.OFFVIS ---
Vital Signs 02/23/24 14:14 Height 6 ft 3 in Weight 224 lb BMI 28.0 BP 114/72 Blood Pressure Location Lt brachial Position Sitting Pulse 68 Pulse Source Pulse Oximeter Intake Visit Reasons: Thyroid Cancer-no vm Intake Note: Patient present today for thyroid cancer follow up visit. Mainframe Software Developer Required: No Accompanied by: Self / Same As Patient Allergies No Known Allergies [No Known Allergies*] Allergy (Verified 09/20/23 17:47) Medication List - Last Reconciled 02/23/24 by Gill Valdes MD aspirin (Adult Low Dose Aspirin) 81 mg PO DAILY levothyroxine 137 mcg PO DAILY HPI Comments Details: 68-year-old male coming in today for follow up of papillary thyroid cancer status post total thyroidectomy in 2006, 1.5 cm focus with extrathyroidal extension, lack of initial info, but likely SANDIE intermediate to high-risk of recurrence, status post radioactive iodine ablation in 2006 with I 131 (dose unknown), currently SANDIE excellent response to therapy. Was previously seeing Dr. Virk, last visit July 2023. History of PTC 2006: Status post total thyroidectomy 1.5 cm PTC focus with extrathyroidal extension, status post I 131 radioactive iodine ablation (the above is from chart review, we do not have any records in the system) Currently on levothyroxine 137 mcg daily. Takes it appropriately, on an empty stomach with a his aspirin pill. He waits an hour before he eats or drinks coffee but he does take some multivitamins within 30 minutes. He is adherent to his therapy Most recent labs from June 2023 show he is biochemically euthyroid with TSH of 0.59, negative thyroglobulin with undetectable thyroglobulin antibodies. No recent ultrasound in the system, patient says he has not had an head and neck ultrasound for at least 5 years. Patient currently denies heat or cold intolerance, diarrhea or constipation, hair loss, palpitation, anxiety, weight changes, mood changes, low energy, changes in appearance of eyes or vision changes, tremors, increased diaphoresis or dry skin. ? Patient denies any difficulty swallowing, pain on swallowing or voice changes or difficulty breathing. No thyroid cancer in family No history head or neck radiation Review of systems Constitutional: no fevers, chills or weight loss HEENT: no changes in vision Cardiac: No chest pain, discomfort or palpitations. Pulmonary: No SOB GI:No abdominal pain, no nausea or vomiting, no anorexia, no blood in stool : no burning micturition, dysuria or increase in urinary frequency Neurologic: No dizziness, no weakness in extremities Physical exam General: sitting comfortably in no acute distress HEENT: normocephalic/atraumatic, moist oral mucosa Neck: supple, symmetrical, no lymphadenopathy or neck masses , no dorsocervical or supraclavicular fat pads Cardiac: normal heart sounds Pulm: normal breath sounds B/L, no added breath sounds Abd: not distended, no tenderness Extremities: no edema, no signs of myxedema Neuro: AAO x3, Speech: normal, no facial droop, moving all 4 extremities [facility] Medical History (Updated 02/23/24 @ 15:00 by Gill Valdes MD) History of thyroid cancer History of papillary adenocarcinoma of thyroid Hyperlipidemia Diverticulosis History of adenomatous polyp of colon Hypothyroidism Surgical History History of colonoscopy (~2021) H/O colonoscopy Hx of skin graft History of left inguinal hernia repair History of thyroidectomy (~2011) Family History Mother Heart problem Father Heart problem Social History Housing: House Alcohol intake: current Alcohol intake frequency: does not drink Patient Tobacco Use Status: Former Tobacco user Tobacco use type: Cigarette Cognitive needs: No Hearing needs: No Vision needs: No Physical Exam Vital Signs: Last Vital Signs Pulse 68 02/23/24 14:14 BP 114/72 02/23/24 14:14 BMI result Body Mass Index 28.0 Results Reviewed Results Reviewed: Laboratory Tests 01/21/22 01/21/23 07/09/23 11:00 11:52 07:36 TSH 0.27 L 2.00 0.59 Free T4 1.50 1.10 1.27 Thyroglobulin <0.1 <0.1 Thyroglobulin Antibody <1 <1 Assessment & Plan Assessment & Plan (1) History of thyroid cancer: Code(s): Z85.850 - Personal history of malignant neoplasm of thyroid Category: Medical Plan: 68-year-old male coming in today for follow up of papillary thyroid cancer status post total thyroidectomy in 2006, 1.5 cm focus with extrathyroidal extension, lack of initial info, but likely SANDIE intermediate to high-risk of recurrence, status post radioactive iodine ablation in 2006 with I 131 (dose unknown), currently SANDIE excellent response to therapy. Most recent labs from June 2023 showed TSH of 0.59, negative thyroglobulin with undetectable thyroglobulin antibodies. This is consistent with excellent response to therapy. I do not see any ultrasound of the neck and patient endorses he has not had 1 for at least past 5 years. We will repeat an ultrasound of the neck. Discussed with the patient that in 3 years, he would be hitting the 20 year adolfo and given no recurrence, this is very reassuring. Plan: -repeat labs with thyroglobulin, thyroglobulin antibodies, TSH, free T4 in 6 months -follow up in 6 months after labs (2) Hypothyroidism: Code(s): E03.9 - Hypothyroidism, unspecified Category: Medical Qualifiers: Hypothyroidism type: acquired Qualified Code(s): E03.9 - Hypothyroidism, unspecified Plan: Patient with postsurgical hypothyroidism currently on levothyroxine 137 mcg daily. His goal TSH is between 0.5-2 given excellent Response to therapy. Plan: -continue levothyroxine 137 mcg daily -repeat TSH, free T4, thyroglobulin markers in 6 months -goal TSH 0.5-2 Plan I spent 30 minutes in reviewing the record, seeing the patient and documenting in the medical record. Orders: Orders Thyroglobulin Antibodies 6 Months Z85.850 - Personal history of malignant neoplasm of thyroid Thyroid Stimulating Hormone 6 Months Z85.850 - Personal history of malignant neoplasm of thyroid Free T4 (Free Thyroxine) 6 Months Z85.850 - Personal history of malignant neoplasm of thyroid US soft tiss head and/or neck Today Z85.850 - Personal history of malignant neoplasm of thyroid Thyroglobulin 6 Months Z85.850 - Personal history of malignant neoplasm of thyroid Thyroglobulin Tumor Marker 6 Months Z85.850 - Personal history of malignant neoplasm of thyroid Medications: Refilled levothyroxine 137 mcg PO DAILY 90 tabs 3RF E03.9 - Hypothyroidism, unspecified Patient Instructions: Do ultrasound , We will call with results Do blood work in 6 months Follow up with me after Coding Level of Care Code Est Pt Level 4 (51276) Complex EM visit Add On G2211 Diagnoses History of thyroid cancer Z85.850 Acquired hypothyroidism E03.9 Hypothyroidism type: acquired Time Spent (min) 30
== END 2024-02-23 14:47 | disposition home or self-care (01) ==
PROVIDERS: PCP Internal Medicine; Visit Provider Student in an Organized Health Care Education/Training Program
DX: Z85.850 Personal history of malignant neoplasm of thyroid (principal); E03.9 Hypothyroidism, unspecified
CPT/HCPCS: 99214

== ENCOUNTER → 2024-02-23 14:01 | Outpatient (BNVA) | payer BC, SELFPAY | PROVIDERS: PCP Internal Medicine; Visit Provider Student in an Organized Health Care Education/Training Program ==

== ENCOUNTER 2024-09-12 13:29 | Outpatient (REF) | payer BC, SELFPAY ==
[2024-09-12 15:23] LABS: Thyroid Stimulating Hormone 1.54 uIU/mL (0.32-4.0)
[2024-09-13 19:09] LABS: Thyroglobulin <0.1 ng/mL; Thyroglobulin Antibodies <1 IU/mL (< or = 1)
[2024-09-15 05:29] LABS: Thyroglobulin Antibody <1 IU/mL (<=1); Thyroglobulin Level <0.1 ng/mL
== END 2024-09-12 13:30 | disposition home or self-care (01) ==
LOC: HO.LAB 13:29
PROVIDERS: PCP Internal Medicine; Visit Provider Student in an Organized Health Care Education/Training Program
DX: E03.9 Hypothyroidism, unspecified (principal); Z85.850 Personal history of malignant neoplasm of thyroid
CPT/HCPCS: 36415; 84432; 84439; 84443; 86800

== ENCOUNTER 2024-09-12 13:29 | Outpatient (AMB) | payer BC, SELFPAY ==
--- NOTE | 2024-09-12 13:30 | A.OFFVIS_ITS ---
Vital Signs 09/12/24 13:31 Height 6 ft 3 in Weight 232 lb 12.93 oz BMI 29.1 BP 142/82 H Blood Pressure Location Lt brachial Position Sitting Pulse 66 Pulse Source Pulse Oximeter Pulse Oximetry (%) 97 Oxygen Delivery Method Room Air Intake Visit Reasons: Thyroid Cancer Intake Note: Patient present today for Thyroid Cancer office visit. 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 Was previously seeing Dr. Virk, last visit July 2023. History of PTC 2006: Status post total thyroidectomy 1.5 cm PTC focus with extrathyroidal extension, status post I 131 radioactive iodine ablation (the above is from chart review, we do not have any records in the system) Interval history Currently on levothyroxine 137 mcg daily. Takes it appropriately, on an empty stomach with a his aspirin pill. He waits an hour before he eats or drinks coffee but he does take some multivitamins within 30 minutes. He is adherent to his therapy Most recent labs from June 2023 show he is biochemically euthyroid with TSH of 0.59, negative thyroglobulin with undetectable thyroglobulin antibodies. No recent ultrasound in the system, patient says he has not had an head and neck ultrasound for at least 5 years. I had ordered an ultrasound at his last appointment in February 2024, but he forgot to schedule this. He also did not do labs prior to this appointment as he was supposed to. Patient currently denies heat or cold intolerance, diarrhea or constipation, hair loss, palpitation, anxiety, weight changes, mood changes, low energy, changes in appearance of eyes or vision changes, tremors, increased diaphoresis or dry skin. ? Patient denies any difficulty swallowing, pain on swallowing or voice changes or difficulty breathing. No thyroid cancer in family No history head or neck radiation Physical exam General: sitting comfortably in no acute distress HEENT: normocephalic/atraumatic, moist oral mucosa Neck: supple, palpable 1 cm left level 2B/upper part of level 3 lymph node, feels soft and mobile Cardiac: normal heart sounds Pulm: normal breath sounds B/L, no added breath sounds Abd: not distended, no tenderness Extremities: no edema, no signs of myxedema Neuro: AAO x3, Speech: normal, no facial droop, moving all 4 extremities Laboratory Tests 01/21/22 01/21/23 07/09/23 11:00 11:52 07:36 TSH 0.27 L 2.00 0.59 Free T4 1.50 1.10 1.27 Thyroglobulin <0.1 <0.1 Thyroglobulin Antibody <1 <1 PFSH Medical History (Updated 02/23/24 @ 15:00 by Gill Valdes MD) History of thyroid cancer History of papillary adenocarcinoma of thyroid Hyperlipidemia Diverticulosis History of adenomatous polyp of colon Hypothyroidism Surgical History History of colonoscopy (~2021) H/O colonoscopy Hx of skin graft History of left inguinal hernia repair History of thyroidectomy (~2011) Family History Mother Heart problem Father Heart problem Social History Housing: House Alcohol intake: current Alcohol intake frequency: does not drink Patient Tobacco Use Status: Former Tobacco user Tobacco use type: Cigarette Cognitive needs: No Hearing needs: No Vision needs: No Physical Exam Vital Signs: Last Vital Signs Pulse 66 09/12/24 13:31 BP 142/82 H 09/12/24 13:31 Pulse Ox 97 09/12/24 13:31 Oxygen Delivery Method Room Air 09/12/24 13:31 BMI result Body Mass Index 29.1 Assessment & Plan Assessment & Plan (1) History of thyroid cancer: Code(s): Z85.850 - Personal history of malignant neoplasm of thyroid Category: Medical Plan: 68-year-old male coming in today for follow up of papillary thyroid cancer status post total thyroidectomy in 2006, 1.5 cm focus with extrathyroidal extension, lack of initial info, but likely SANDIE intermediate to high-risk of recurrence, status post radioactive iodine ablation in 2006 with I 131 (dose unknown), currently SANDIE excellent response to therapy. Most recent labs from June 2023 showed TSH of 0.59, negative thyroglobulin with undetectable thyroglobulin antibodies. This is consistent with excellent response to therapy. I do not see any ultrasound of the neck and patient endorses he has not had 1 for at least past 5 years. We had ordered an ultrasound at his last appointment in February 2024 but he forgot to get that and also did not get labs prior to this visit as he was supposed to. He will do blood work today. Discussed with the patient that in 3 years, he would be hitting the 20 year adolfo and given no recurrence, this is very reassuring. Plan: -repeat labs with thyroglobulin, thyroglobulin antibodies, TSH, free T4 to be done today -ordered ultrasound of the neck again -follow up in 8 weeks to discuss results (2) Hypothyroidism: Code(s): E03.9 - Hypothyroidism, unspecified Category: Medical Qualifiers: Hypothyroidism type: acquired Qualified Code(s): E03.9 - Hypothyroidism, unspecified Plan: Patient with postsurgical hypothyroidism currently on levothyroxine 137 mcg daily. His goal TSH is between 0.5-2 given excellent Response to therapy. Plan: -continue levothyroxine 137 mcg daily -repeat TSH, free T4, thyroglobulin markers today -goal TSH 0.5-2 Plan See above Orders: Orders US soft tiss head and/or neck Today Z85.850 - Personal history of malignant neoplasm of thyroid Patient Instructions: Continue levothyroxine 137 mcg daily Do blood work today ,we will reach out with results, and let you know if any dose change is needed Do Ultrasound of the neck ,someone will call you to schedule this Follow up in 8 weeks to discuss result of the ultrasound Coding Level of Care Code Est Pt Level 3 (13911) Complex EM visit Add On G2211 Diagnoses History of thyroid cancer Z85.850 Acquired hypothyroidism E03.9 Hypothyroidism type: acquired
[2024-09-12 13:31] VITALS: BP 142/82; PULSE 66; O2SAT 97; BMI 29.1
== END 2024-09-12 13:55 | disposition home or self-care (01) ==
LOC: HO.ENCR 13:30
PROVIDERS: PCP Internal Medicine; Visit Provider Student in an Organized Health Care Education/Training Program
DX: Z85.850 Personal history of malignant neoplasm of thyroid (principal); E03.9 Hypothyroidism, unspecified
CPT/HCPCS: 99213

== ENCOUNTER 2024-10-25 16:02 | Outpatient (REF) | payer BC, SELFPAY ==
--- NOTE | ~2024-10-25 | US_ITS ---
EXAMINATION: US SOFT TISSUE HEAD AND/OR NECK CLINICAL INFORMATION: History of thyroid CA. Evaluate lymph nodes. COMPARISON: None available. TECHNIQUE: Linear transducer barrow-scale and color Doppler examination with attention to the region of the thyroid. FINDINGS: NODES: There are small subcentimeter short axis lymph nodes bilaterally, all with normal evans morphology, consistent with normal reactive lymph nodes. There are no pathologic appearing nodes present. There are no neck masses. US/US soft tiss head and/or neck IMPRESSION: 1. No abnormal lymph nodes noted within the neck. Electronically signed by: Artur Infante MD 10/26/2024 08:53 AM EDT
--- OUTSIDE RECORDS SUMMARY | 2024-10-25 18:25 | XMS_ITS | Patient Health Record ---
Author Organization [facility] [place] Address [address] [place] [address] Care Team Providers Care Instant Print Operator Name Role Phone Danni GOFF, Erika Heard Primary Care Provider Un available BlackTaylor Unavailable [phone] Reason For Referral No Information Medications Medication SIG (Take, Route, Frequency, Duration) Notes Start Date End Date Status Synthroid 175 MCG 1 TABLET BY MOUTH DA RENETTA,X30 DAYS,INSTR:ALTERNATE WITH 150MCG BRAND NAME MEDICALY NECESSARY NO SUB Oral for 30 Active Warfarin Sodium 5 MG TAKE 1 TABLET (5 MG ) BY MOUTH DAILY AT 4 PM THEN 7.5 MG DAILY DIRECTED. Oral for 30 Not-Taking aspirin baby Active Social History Tobacco Use: Social History Observation Description Date Details (start date - stop date) Former Smoker NA - NA Tobacco Use/Smoking Question Answer Notes Are you a: former smoker Additional Findings: Tobacco Non-User Current no n-smoker Alcohol Screen Question Answer Notes Did you have a drink containing alcohol in the p ast year? Yes Points 0 Interpretation Negative Tobacco use other than smoking: Question Answer Notes Are you an other tobacco user? No Problems No Known Problems Plan Of Treatment No Information Insurance Providers Payer Name Payer Address Payer Phone Subscriber Number Group Number Insured Name Patient Relationship to Insured Coverage Start Date Coverage End Date [facility] [address] [place] [address] [phone] [id number] Nnamdi Casanova Self - patient is the insured Medical (General) History Medical History History ICD Code Cancer Thyroid disorder Mumps blood clots Surgical History Surgery Date(Month/Year) thyroid surgery 2002
== END 2024-10-25 16:03 | disposition home or self-care (01) ==
LOC: HO.US 16:02
PROVIDERS: PCP Internal Medicine; Visit Provider Student in an Organized Health Care Education/Training Program
DX: Z85.850 Personal history of malignant neoplasm of thyroid (principal)
CPT/HCPCS: 76536

== ENCOUNTER → 2024-10-25 16:03 | Outpatient (BNV) | payer BC, SELFPAY | PROVIDERS: PCP Internal Medicine; Visit Provider Radiology Diagnostic Radiology | DX: Z85.850 Personal history of malignant neoplasm of thyroid (principal) | CPT/HCPCS: 76536 ==

== ENCOUNTER 2024-12-29 13:10 | Outpatient (AMB) | payer BC, SELFPAY ==
--- OUTSIDE RECORDS SUMMARY | 2024-12-29 13:23 | XMS_ITS | Patient Health Record ---
Author Organization [facility] [place] Address [address] [facility] [place] [address] Care Team Providers Care Granite Sandblaster Apprentice Name Role Phone Danni GOFF, Erika Heard Primary Care Provider Un available BlackHoTaylor Unavailable [phone] Reason For Referral No Information Medications Medication SIG (Take, Route, Frequency, Duration) Notes Start Date End Date Status Synthroid 175 MCG 1 TABLET BY MOUTH DA RENETTA,X30 DAYS,INSTR:ALTERNATE WITH 150MCG BRAND NAME MEDICALY NECESSARY NO SUB Oral; Duration: 30 Active Warfarin Sodium 5 MG TAKE 1 TABLET (5 MG ) BY MOUTH DAILY AT 4 PM THEN 7.5 MG DAILY DIRECTED. Oral; Duration: 30 Not-Taking aspirin baby Active Social History [...] Insured Coverage Start Date Coverage End Date [facility] [address] [place] [id number] Nnamdi Casanova Self - patient is the insured Medical (General) History Medical History History ICD Code Cancer Thyroid disorder Mumps blood clots Surgical History Surgery Date(Month/Year) thyroid surgery 2002
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
[2024-12-29 13:40] VITALS: BP 108/68; PULSE 62; RESP 16; TEMP 36.9; O2SAT 98; BMI 28.2
--- NOTE | 2024-12-29 13:40 | A.OFFPC_ITS ---
Vital Signs 12/29/24 13:40 Height 6 ft 3 in Weight 226 lb BMI 28.2 BP 108/68 Blood Pressure Location Rt brachial Position Sitting Respiration 16 Pulse 62 Pulse Source Pulse Oximeter Temp 98.4 F Temp Source Oral Pulse Oximetry (%) 98 Oxygen Delivery Method Room Air Intake Visit Reasons: PE Intake Note: Pt is here today for his PE: last colonoscopy 08/13/21 Allergies No Known Allergies (No Known Allergies*) Allergy (Verified 01/01/25 19:02) Medication List - Last Reconciled 01/01/25 by Erika Razo MD aspirin (Adult Low Dose Aspirin) 81 mg PO DAILY levothyroxine 137 mcg PO DAILY Tobacco use date assessed: 12/29/24 Fall risk assessment: No Falls in past year Last assessed Fall Risk: 12/29/24 Dental Screening Dental Screen Date: 12/29/24 Did you have a dental visit in the last 12 months?: Yes Did you have a dental problem in the last 6 months where you did not have access to dental care?: No Was dental information given to patient?: Patient has dentist HPI PE HPI Details - The patient is a 69-year-old male pres enting with a physical exam - Thyroid disorder: 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 Latest. Thyroid function tests , including free T4 were normal. - Preventative care: The patient is up t o date with his colonoscopy, last performed in 2021, with removal of tubular adenoma polyp, and is to have a repeat colonoscopy in l 2026. He is also due for a prostate cancer screening, and a PSA test will be added to his blood work. - Preventative care: The patient has bee n advised to have and eye examination . He has not had a recent eye exam and was encouraged to schedule one. - Preventative care: The patient is unde rgoing dental care, including potential dentures or a bridge, and has had a recent root canal. [facility] Medical History (Updated 12/29/24 @ 14:22 by Erika Razo MD) Vaccine refused by patient History of thyroid cancer History of papillary adenocarcinoma of thyroid Hyperlipidemia Diverticulosis History of adenomatous polyp of colon Hypothyroidism Surgical History History of colonoscopy (~2021) H/O colonoscopy Hx of skin graft History of left inguinal hernia repair History of thyroidectomy (~2011) Family History Mother Heart problem Father Heart problem Social History Housing: House Alcohol intake: current Alcohol intake frequency: does not drink Patient Tobacco Use Status: Former Tobacco user Tobacco use type: Cigarette e-Cigarette/Vaping Use: Never Used service: No Current occupational status: employed Cognitive needs: No Hearing needs: No Vision needs: No Questionnaire PHQ-9 Over the last 2 weeks, how often have you been bothered by any of the following problems? 1. Little interest or pleasure in doing things: not at all 2. Feeling down, depressed, or hopeless: not at all 3. Trouble falling or staying asleep, or sleeping too much: not at all 4. Feeling tired or having little energy: not at all 5. Poor appetite or overeating: not at all 6. Feeling bad about yourself - or that you are a failure or have let yourself or your family down: not at all 7. Trouble concentrating on things, such as reading the newspaper or watching television: not at all 8. Moving or speaking so slowly that other people could have noticed. Or the opposite - being so fidgety or restless that you have been moving around a lot more than usual: not at all 9. Thoughts that you would be better off or of hurting yourself in some way: not at all Total score: 0 Depression Screening Interpretation: Negative Depression Screening Done: Yes 56655 - PHQ-9 Billing: Yes Source: Developed by Drs. Junior Harrell, Nathalia Arthur, Harley Munoz and colleagues, with an educational carter from [facility]. Thrive Questionnaire Date Thrive assessed: 12/29/24 I am a: Patient What is your living situation today?: I have a steady place to live Within the past 12 months, did the food you bought not last and you didn't have the money to get more?: Never true Within the past 12 months, did you worry whether your food would run out before you got money to buy more?: Never true Do you have trouble paying for medicines?: No Do you have trouble getting transportation to medical appointments?: No Do you have trouble paying your heating and electricity bill?: No Do you have trouble taking care of your child, family member or friend?: No Do you have trouble with day-to-day activities such as bathing, preparing meals, shopping, managing finances, etc.?: No Are you currently unemployed and looking for a job?: No Are you interested in more education?: No THRIVE Score: 0 AUDIT C Alcohol Use Questionnaire (AUDIT-C) 1. How often do you have a drink containing alcohol?: 4 or more times a week 2. How many drinks containing alcohol do you have on a typical day when you are drinking?: 1 or 2 3. How often do you have six or more drinks on one occasion?: Never Total Score: 4 KATERINA-7 AMB Questionnaire KATERINA-7 Date KATERINA - 7 assessed: 07/07/23 Source: Developed by Drs. Junior Harrell, Nathalia Arthur, Harley Munoz and colleagues, with an educational carter from [facility]. Review of Systems Const Denies no additional complaints Eyes Details: used to go to [facility], patient states will schedule appointment Denies change in vision ENT Details: Has a dentist in [facility] Reports no additional complaints Card Reports no additional complaints, Denies chest pain and Denies dyspnea Resp Denies cough and Denies dyspnea GI Denies abdominal pain Reports no additional complaints Musc Reports as per HPI Skin/Breast Denies lesions and Denies rash Neuro Reports no additional complaints Psych Reports as per HPI Endo Reports no additional complaints Binh/Lymph Reports no additional complaints Aller/Immun Reports no additional complaints Physical exam (Primary Care) Vital Signs: Last Vital Signs Temp 98.4 F 12/29/24 13:40 Pulse 62 12/29/24 13:40 Resp 16 12/29/24 13:40 BP 108/68 12/29/24 13:40 Pulse Ox 98 12/29/24 13:40 Oxygen Delivery Method Room Air 12/29/24 13:40 BMI result Body Mass Index 28.2 Tobacco/Smoking Status: Tobacco use Status Tobacco use date assessed 12/29/24 12/29/24 13:41 Patient Tobacco Use Status Former Tobacco user 12/29/24 13:41 Tobacco use type Cigarette 12/29/24 13:41 e-Cigarette/Vaping Use Never Used 12/29/24 13:41 Depression Screening Interpretation: Negative Thrive Assessment: Date of Thrive Assessment Date Thrive assessed 07/07/23 12/29/24 13:41 Advance Care Planning discussion: Completed/Scanned Date of discussion: 12/29/24 Who was present: Patient Forms completed: Health Care Proxy and MOLST Time spent: 16-45 minutes Actual minutes spent: 5 Const General: comfortable, no acute distress and alert Orientation/consciousness: patient oriented x3 HENMT Ears: external ears normal General nose exam: Normal external nose present and No nasal discharge present Mouth: Normal oral and palatal mucosa present and moist mucous membranes Teeth and gingiva: poor dentition Eyes General: appearance normal, both eyes and all related structures Conjunctivae: conjunctivae normal Sclerae: sclerae normal Pupils: Equal, round and reactive pupils present EOM: EOMs intact bilaterally Neck Neck: Yes full ROM, Yes no lymphadenopathy and Yes supple Resp Effort & Inspection: normal respiratory effort and able to speak in complete sentences Auscultation: clear to auscultation bilaterally Cardio Rate: regular rate Rhythm: regular rhythm Heart sounds: S1 normal heart sound present and S2 normal heart sound present GI Palpation (GI): Soft to palpation, nontender and no masses Auscultation: normal bowel sounds Back/Spine/Pelvis Back: No back tenderness Skin General skin exam: no rashes or lesions noted Neuro General: patient oriented x3, gait normal, tone normal, moves all extremities, Normal light touch and pain sensation and no focal motor deficits Cranial nerves: Yes CN's II-XII intact bilaterally and Yes Equal, round and reactive pupils present Cognition (Neuro): normal cognition Extrem General: Yes full ROM, Yes no joint enlargement, Yes no clubbing, cyanosis or edema and Yes no calf tenderness Psych Appearance: grossly normal and well kempt Mental Status: mental status grossly normal Speech and movement: Normal speech and movement present Affect: normal affect Results Reviewed Results Reviewed: RUN: 01/01/251909 PAGE 1 [facility] [address] [place] [id number] Bank President: Redd Aparicio M.D. Specimen Inquiry Name: Nnamdi Casanova Age/Sex: 69/M : 1955 Unit#: [id number] Attend Dr: Gill Valdes MD Re09/12/24 Status: DEP REF Location: .LAB Disch: SPEC : [id number] VASILIY: 09/12/24 STATUS: COMP REQ : [id number] RECD: 09/12/[address]: Gill Valdes MD COMP: 09/12/24-1522 ENTERED: 09/12/24-[address]: Erika Razo MD ORDERED: Free T4, TSH Test Result Flag Reference Free T4 1.10 0.71-1.85 ng/dL TSH 3rd Gen. 1.54 0.32-4.0 uIU/mL TSH 3rd Generation ([facility]) Coding Level of Care Code Est Pt Prev Care >65y(06750) Diagnoses Annual visit for general adult medical examination with abnormal findings Z00.01 Pure hypercholesterolemia E78.00 Hyperlipidemia type: pure hypercholesterolemia Acquired hypothyroidism E03.9 Hypothyroidism type: acquired History of adenomatous polyp of colon Z86.010 History of papillary adenocarcinoma of thyroid Z85.850 Advance directive discussed with patient Z71.89 Vaccine refused by patient Z28.20 Additional Codes Vital Signs *Quality* - Advance Care Planning discussion: Completed/Scanned ([id number]) Vital Signs *Quality* - Time spent: 16-45 minutes ([id number]) PHQ-9 - 56381 - PHQ-9 Billing: Yes ([id number]) Assessment & Plan Assessment & Plan (1) Annual visit for general adult medical examination with abnormal findings: Code(s): Z00.01 - Encounter for general adult medical examination with abnormal findings (2) Hyperlipidemia: Code(s): E78.5 - Hyperlipidemia, unspecified Category: Medical Qualifiers: Hyperlipidemia type: pure hypercholesterolemia Qualified Code(s): E78.00 - Pure hypercholesterolemia, unspecified (3) Hypothyroidism: Code(s): E03.9 - Hypothyroidism, unspecified Category: Medical Qualifiers: Hypothyroidism type: acquired Qualified Code(s): E03.9 - Hypothyroidism, unspecified (4) History of adenomatous polyp of colon: Code(s): Z86.010 - Personal history of colon polyps Category: Medical (5) History of papillary adenocarcinoma of thyroid: Code(s): Z85.850 - Personal history of malignant neoplasm of thyroid Category: Medical (6) Advance directive discussed with patient: Code(s): Z71.89 - Other specified counseling Plan: Initiated the conversation about Advanced Directives. Advanced Directives help patients prepare for current and future decisions about their medical treatment and place of care. Discussed with patient that it is a process where a patients current condition and prognosis are reviewed, their wishes for information regarding their illness are elicited, and likely medical dilemmas are presented and options discussed. Healthcare proxy and MOLST form completed today. The form can be amended as needed, reviewed yearly and make changes as needed (7) Vaccine refused by patient: Code(s): Z28.20 - Immunization not carried out because of patient decision for unspecified reason Category: Medical Plan: Patient does not want to get any vaccines Plan The patient will have a PSA test added to his blood work to screen for prostate cancer, given his age and the absence of recent screening. He is advised to schedule an eye examination to check for glaucoma, cataracts, and macular degeneration, as he has not had a recent exam. Dental care is ongoing, with potential plans for dentures or a bridge, following a recent root canal. Latest thyroid levels are within normal limits, continued on current dose of levothyroxine 137 mcg daily The patient is advised to delay blood work until May due to insurance changes, which will include a complete blood count, thyroid function tests, iron levels, cholesterol, and liver function tests. He is encouraged to consider vaccinations, although he declined them during this visit. Reminded that he is due again for repeat colonoscopy screening in 2026. Patient was informed and verbally consented to the use of an ambient scribe for clinic note documentation during this visit. Orders: Orders Lipid Panel 12/29/24 E03.9 - Hypothyroidism, unspecified, E78.00 - Pure hypercholesterolemia, unspecified, Z00.01 - Encounter for general adult medical examination with abnormal findings, Z13.1 - Encounter for screening for diabetes mellitus, Z85.850 - Personal history of malignant neoplasm of thyroid, Z86.010 - Personal history of colon polyps Thyroid Stimulating Hormone 12/29/24 E03.9 - Hypothyroidism, unspecified, E78.00 - Pure hypercholesterolemia, unspecified, Z00.01 - Encounter for general adult medical examination with abnormal findings, Z13.1 - Encounter for screening for diabetes mellitus, Z85.850 - Personal history of malignant neoplasm of thyroid, Z86.010 - Personal history of colon polyps Complete Blood Count Auto Diff 12/29/24 E03.9 - Hypothyroidism, unspecified, E78.00 - Pure hypercholesterolemia, unspecified, Z00.01 - Encounter for general adult medical examination with abnormal findings, Z13.1 - Encounter for screening for diabetes mellitus, Z85.850 - Personal history of malignant neoplasm of thyroid, Z86.010 - Personal history of colon polyps IRON PROFILE 12/29/24 E03.9 - Hypothyroidism, unspecified, E78.00 - Pure hypercholesterolemia, unspecified, Z00.01 - Encounter for general adult medical examination with abnormal findings, Z13.1 - Encounter for screening for diabetes mellitus, Z85.850 - Personal history of malignant neoplasm of thyroid, Z86.010 - Personal history of colon polyps Aspartate Amino Transferase 12/29/24 E03.9 - Hypothyroidism, unspecified, E78.00 - Pure hypercholesterolemia, unspecified, Z00.01 - Encounter for general adult medical examination with abnormal findings, Z13.1 - Encounter for screening for diabetes mellitus, Z85.850 - Personal history of malignant neoplasm of thyroid, Z86.010 - Personal history of colon polyps Alanine Aminotransferase 12/29/24 E03.9 - Hypothyroidism, unspecified, E78.00 - Pure hypercholesterolemia, unspecified, Z00.01 - Encounter for general adult medical examination with abnormal findings, Z13.1 - Encounter for screening for diabetes mellitus, Z85.850 - Personal history of malignant neoplasm of thyroid, Z86.010 - Personal history of colon polyps Basic Metabolic Panel Fasting 12/29/24 E03.9 - Hypothyroidism, unspecified, E78.00 - Pure hypercholesterolemia, unspecified, Z00.01 - Encounter for general adult medical examination with abnormal findings, Z13.1 - Encounter for screening for diabetes mellitus, Z85.850 - Personal history of malignant neoplasm of thyroid, Z86.010 - Personal history of colon polyps Free T4 (Free Thyroxine) 12/29/24 E03.9 - Hypothyroidism, unspecified, E78.00 - Pure hypercholesterolemia, unspecified, Z00.01 - Encounter for general adult medical examination with abnormal findings, Z13.1 - Encounter for screening for diabetes mellitus, Z85.850 - Personal history of malignant neoplasm of thyroid, Z86.010 - Personal history of colon polyps PSA,Total (Free>4and<10) 12/29/24 Z12.5 - Encounter for screening for malignant neoplasm of prostate
== END 2024-12-29 14:24 | disposition home or self-care (01) ==
LOC: HO.HMCC 13:11
PROVIDERS: PCP Internal Medicine; Visit Provider Internal Medicine
DX: Z00.01 Encounter for general adult medical examination with abnormal findings (principal); E78.00 Pure hypercholesterolemia, unspecified; E03.9 Hypothyroidism, unspecified; Z86.0100 Personal history of colon polyps, unspecified; Z85.850 Personal history of malignant neoplasm of thyroid; Z71.89 Other specified counseling; Z28.20 Immunization not carried out because of patient decision for unspecified reason; Z00.00 Encounter for general adult medical examination without abnormal findings

== ENCOUNTER → 2024-12-29 13:10 | Outpatient (BNVA) | payer BC, SELFPAY | PROVIDERS: PCP Internal Medicine; Visit Provider Internal Medicine | DX: Z00.01 Encounter for general adult medical examination with abnormal findings (principal); E78.00 Pure hypercholesterolemia, unspecified; E03.9 Hypothyroidism, unspecified; Z86.0101 Personal history of adenomatous and serrated colon polyps; Z85.850 Personal history of malignant neoplasm of thyroid; Z28.20 Immunization not carried out because of patient decision for unspecified reason; Z71.89 Other specified counseling | CPT/HCPCS: 96127 ==